=== PATIENT | female | born 1945 | race Caucasian/White ===

== ENCOUNTER → 2017-08-28 | Outpatient (CLI) | payer OTHER | LOC: BC 13:36 | DX: Z12.31 Encounter for screening mammogram for malignant neoplasm of breast (principal) ==

== ENCOUNTER → 2018-04-12 | Outpatient (CLI) | payer OTHER | LOC: CAT 13:04 | DX: Z13.6 Encounter for screening for cardiovascular disorders (principal); E78.00 Pure hypercholesterolemia, unspecified ==

== ENCOUNTER → 2018-11-08 | Outpatient (CLI) | payer OTHER | LOC: RAD 11:55 | DX: Z12.31 Encounter for screening mammogram for malignant neoplasm of breast (principal) ==

== ENCOUNTER → 2019-07-01 | Outpatient (CLI) | payer OTHER ==
[~2019-07-01] VITALS: Ht 157.5 cm; Wt 64.4 kg
[~2019-07-01] MED LIST: ALENDRONATE SOD70 MG PO; AREDS PO; BIOTIN5000 MCG PO; MAGNESIUM PO; MELATONIN3 MG PO; NEURONTIN100 MG PO; NORVASC5 MG PO; PROBIOTIC1 EAC7 PO; SYNTHROID50 MCG PO; VENLAFAXINE HCL75 M2 PO; VIACTIV 650 MG1 EACH PO; VITAMIN B12-FO1 EAC1 PO; VITAMIN D34000 UNIT PO
--- NOTE | ~2019-07-01 | HPC ---
[facility] [place] [address] PAIN MANAGEMENT CONSULTATION Name: SUKHI BECERRA Room #: REG [facility].#: [id number] Admission: 07/01/19 Attend Phys: Garrick Talley MD Discharge: Date of : 47 Report #: [id number] THIS REPORT FOR: //name// CC: Darshan Talley DATE OF SERVICE: 07/01/2019 CHIEF COMPLAINT: Bilateral hip pain, trochanteric bursitis. 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 Randall for evaluation of bilateral hip pain. She has been experiencing discomfort in the hips for about 2-3 years. She was doing some yoga around that time and had sudden onset of pain, so severe that x-rays were performed diagnosing a labral tear. Since that time, she has had some ongoing pain, although this now appears to be more localized in the soft tissue. It is worse with all activity, bending, walking and she has significant trouble lying directly on either hip. The pressure on the trochanter causes pain that she scores anywhere between a 5/10. It is interfering with her sleep and activities and she is here today to see if injections will be helpful. Additional problems include going up and down steps. She describes it as a weakness, but it sounds also as though the pain is enough that it causes a guarding and she is limited in hip flexion and pushing up. An MRI was performed of the left hip. At that time, tendinosis and a partial tear of the gluteus minimus tendon at the insertion of the greater trochanter was seen causing moderate trochanteric bursitis. There is also very subtle tear of the upper labrum on the left. No x-rays were performed on the right. MEDICATIONS: Levothyroxine, amlodipine, venlafaxine, gabapentin, vitamin D3, AREDS2, B12, biotin, magnesium, melatonin, probiotic, alendronate, Viactiv. ALLERGIES: None. PAST MEDICAL HISTORY: Remarkable for hypertension. PAST SURGICAL HISTORY: Cholecystectomy, appendectomy, hysterectomy and removal of basal cell cancer. SOCIAL HISTORY: She is . She is a registered nurse, currently working. She denies use of tobacco or any recreational drugs or illegal substances. She enjoys an alcoholic beverage once or twice a week in a social setting. [address] [address] PAIN MANAGEMENT CONSULTATION Name: SUKHI BECERRA Room #: REG [facility]#: [id number] Admission: 07/01/19 Attend Phys: Garrick Talley MD Discharge: Date of : 47 Report #: [id number] REVIEW OF SYSTEMS: Positive for some blurred vision. She uses glasses or contact lenses. Otherwise, self-reported review of systems is essentially negative. PHYSICAL EXAMINATION: GENERAL: She is a very pleasant 74-year-old who appears much younger than her stated age. VITAL SIGNS: Her blood pressure is 127/83, heart rate 80, respirations 14. MUSCULOSKELETAL: Examination of the hips reveals good range of motion with no significant pain with internal and external rotation. Straight leg raising is negative for radiculopathy. Deep tendon reflexes are 2+ knees and ankles with no asymmetry. Sensation is normal. The most marked finding is bilateral trochanteric tenderness, which is exquisite posterior and inferior to the greater trochanter on each side. It is fairly symmetrical. IMPRESSION: Bilateral trochanteric bursitis. RECOMMENDATION: Bilateral trochanteric bursa injection. After informed consent, she began on the right. Skin was prepped with ChloraPrep and a 25-gauge 2-inch needle was used to infiltrate a total of 7 mL of 0.25% bupivacaine mixed with 30 mg of triamcinolone around the trochanter and posterior. The needle was removed. Band-Aid was applied and she was then moved to the opposite side and we injected the left trochanteric bursa in the same fashion. She tolerated the procedure well. Pain was still about a 5 when she was discharged but we are hopeful that the pain will continue to decrease over the next few days related to the cortisone. She has responded favorably to oral steroids. Follow up as needed. By: [id number] Garrick Talley MD /nt
[2019-07-01 08:58] VITALS: BP 123/79
--- NOTE | 2019-07-01 09:13 | NUR ---
Pain Clinic Assessment: 1. History of Osteoarthritis: DENIES History of Rheumatoid Arthritis: DENIES 2. Height: 5 ft. 2 in. 157.5 cm. Weight: 142.0 lb. oz. 64.411 kg. Patient's BMI: 26.0 3. Vital Signs: BP: 123/79 Pulse: 72 Resp: 14 Temp: 02 Sat: 100 ECG Mon: 4. Pain Intensity: 5 5. Fall Risk: Dizziness: N Needs help standing or walking: N Fallen in the last 3 months: N Fall risk comments: 6. Patient on Blood Thinner: None 7. History of Hypertension: N 8. Opioid Therapy greater than 6 weeks: N Opiate Contract Signed: 9. Risk Assessment Tool Provided: 10. Functional Assessment Tool: 11. Recreational Drug Use: Never Drug Type: Tobacco Use: Never Smoker Tobacco Type: Amount or Packs/day: How Many Years: Alcohol Use: Yes Frequency: Weekly Quant: 1-2 DRINKS A WEEK
== END | disposition home or self-care (01) ==
LOC: PAIN 06:48
DX: M70.62 Trochanteric bursitis, left hip (principal); M70.61 Trochanteric bursitis, right hip; M76.892 Other specified enthesopathies of left lower limb, excluding foot; M76.891 Other specified enthesopathies of right lower limb, excluding foot; Z90.49 Acquired absence of other specified parts of digestive tract; Z98.890 Other specified postprocedural states; Z79.899 Other long term (current) drug therapy

== ENCOUNTER → 2020-07-06 | Outpatient (CLI) | payer OTHER | LOC: RAD 12:36 → BC 13:59 | PROVIDERS: ATTEND Obstetrics & Gynecology | DX: Z12.31 Encounter for screening mammogram for malignant neoplasm of breast (principal); M85.88 Other specified disorders of bone density and structure, other site ==

== ENCOUNTER → 2021-07-27 | Outpatient (CLI) | payer OTHER | LOC: CAT 09:32 | PROVIDERS: ATTEND Family Medicine | DX: Z13.6 Encounter for screening for cardiovascular disorders (principal); I25.10 Atherosclerotic heart disease of native coronary artery without angina pectoris; E78.00 Pure hypercholesterolemia, unspecified ==

== ENCOUNTER → 2021-07-27 | Outpatient (CLI) | payer OTHER | LOC: BC 10:09 | PROVIDERS: ATTEND Family Medicine | DX: Z12.31 Encounter for screening mammogram for malignant neoplasm of breast (principal) ==